=== PATIENT | female | born 1990 | race African-American/Black ===

== ENCOUNTER 2025-07-13 16:48 | Emergency (ER) | payer OTHER, SELFPAY ==
--- OUTSIDE RECORDS SUMMARY | 2025-07-13 16:50 | XMS REPORT | Continuity of Care Document ---
Author Name Unknown Address [address] [facility] [address] [place] [address] Organization [facility] Address [address] [facility] [place] [address] Care Team Providers Care Ukrainian Folk Arts Instructor Name Role Phone MARIPOSA STAPLES Attending Clinician Unavailable [id number] Attending Clinician Unavailable MD WILLARD Attending Clinician Unavailab le Payers Payer Name Policy Type Policy Number Effective Date Expirati on Date Source [facility] GUILLERMO ARAUZ COPAY FOCUS 9 [id number] 2024 00:00:00 Social History Social Habit Start Date Stop Date Quantity Comments Source Gender identity 2025-06-30 20:39:33 Identifies as female gender (finding) Bharti Sanon - External Sexual orientation 2025-06-30 20:39:33 Heterosexual (finding) Bharti Sanon - External ASSERTION Possible Deana Sanon - External History of Social function 2025-07-04 00:00:00 2025-07-04 00:00:00 Bharti Hernandezold - External Tobacco use and exposure 2025-07-04 00:00:00 2025-07-04 00:00:00 Smokeless tobacco non-user Bharti Hernandezold - External Alcoholic beverage intake 2025-07-04 00:00:00 2025-07-04 00:00:00 Ex-drinker (finding) Bharti Hernandezold - External Sex 2022-11-28 15:58:17 2022-11-28 15:58:17 Female (finding) Bharti Hernandezold - External Smoking Status Start Date Stop Date Source Never smoked tobacco Bharti Hernandezold - External Medications Ordered Medication Name Filled Medication Name Start Date Stop Date Current Medication? Ordering Clinician Indication Dosage Frequency Signature (SIG) Comments Components Source Vit-Fe Fumarate-FA ( OR) Vit-Fe Fumarate-FA ( OR) 07-04 13:33: 54 Yes Take by mouth. Bharti Sanon - Externa l Vital Signs Vital Name Observation Time Observation Value Comments S ource Systolic blood pressure 2025-07-04 13:32:00 123 mm[Hg] Bharti Hernandezo ld - External Diastolic blood pressure 2025-07-04 13:32:00 75 mm[Hg] Bharti Hernandezo ld - External Heart rate 2025-07-04 13:32:00 86 /min Dmitry Hernandezold - External Respiratory rate 2025-07-04 13:32:00 18 /min Bharti Sanon - External Body weight 2025-07-04 13:32:00 70.308 kg Shelia Hernandezold - External Procedures Procedure Date / Time Performed Performing Clinician Source US PREG TRANSVAGINAL - IN OFFICE 2025-07-04 00:00:00 Bharti Sanon - External GYNECOLOGIC PAP TEST, APTIMA HPV, RFX 16/18,45 Bharti Sanon - External CHLAMYDIA/GC AMPLIFICATION Bharti Sanon - External Plan of Care Planned Activity Planned Date Details Comments Source Encounters Start Date/Time End Date/Time Encounter Type Admission Type Attending [facility] Care Facility Care Department Encounter ID Source 2025-07-20 16:00:00 2025-07-20 16:00:00 Outpatient MARIPOSA STAPLES [id number] [facility] 2025-07-13 14:30:00 2025-07-13 14:30:00 Outpatient [id number] BHARTI DIAZSEY [id number] [facility] 2025-07-12 00:00:00 2025-07-12 00:00:00 Outpatient MD BHARTI العلي [id number] [facility] 2025-07-04 13:30:00 2025-07-04 13:30:00 Outpatient MARIPOSA STAPLES [id number] [facility] 2025-07-04 13:30:00 2025-07-04 13:30:00 Outpatient BHARTI GARCIA [id number] [facility] 2025-06-27 00:00:00 2025-06-27 00:00:00 Outpatient MARIPOSA STAPLES [id number] [facility] Notes Throughout your , you'll have many questions and your doctor's officeWe hope you have an amazing experience at [facility] during yourIndex Urdu Related [id number] by sono Date/Time Note Provider Source 2025-07-04 14:36:14 [facility] 2025-07-04 14:36:14 Patient Instructions Mariposa Staples MD - 07/01/2025 8:52 AM CDT Images from the original note were not included. Please begin taking baby aspirin 81 mg daily for the remainder of your to decrease your risk for preeclampsia. Your New Prescription for Managing Your Health Care Online. Are you a regular user of the Internet? Do you bank or shop online? If the answer is "yes," then now is the time to sign up for [employer], your direct, secure connection to the health home care attendant you rely on at [facility]. [employer] provides a secure login, which allows you to: Receive lab and imaging results electronically from your health care team. Request an appointment. Schedule an appointment. E-mail your health care team. View past and future appointments. Request updates to insurance and demographic information. And more! To get started, just log on to [email or web address] and select "If you do not have an access code and would like to enroll in [employer]...Click here." Enrollment is a multi-step process that includes answering four questions to confirm your identity and creating a unique user ID and password. It's easy and secure. And it's free! [employer] My Portal will share a lot of information with you. It can be overwhelming at times, which is why we're providing you with the most important information as you progress through your and welcome your . and utilize [employer] to streamline communication with your doctor's office, and more! look forward to caring for you and your family for years to come. [email or web address] n/[email or web address]- Care [place]INTS care is the care you receive while you are . care improves your chances for a healthy and healthy baby. At each visit, your healthcare provider will check to make sure that you and the baby are healthy. Besides having a checkup, you may have blood tests, ultrasound scans, or other tests. Keep all appointments with your healthcare provider. Use these visits to discuss your concerns or problems. ____ What is care? care is the care you receive while you are . It includes care given by your healthcare provider, support from your family, and giving yourself the care you need. care improves your chances for a healthy and healthy baby. When should I see my healthcare provider? If you are not yet but plan to get in the next few months, see your healthcare provider. Your provider may do some tests and talk about things you can do to have a healthy and healthy baby. You should schedule your first visit with your healthcare provider as soon as you think you are . Depending on your health and medical history, your provider will probably schedule visits at least once a month for the first 6 months. During the 7th and 8th months you will see your provider every 2 weeks. During the last month you will probably see your provider once a week until you deliver your baby. If your is high risk, your provider will probably want to see you more often or may refer you to a specialist. is considered high risk if you are over the age of 35 or have diabetes or other health problems. What will happen at the first visit? At your first visit, your healthcare provider will ask about your personal medical history. He or she will also ask about the baby s father and your family health history. This information can help give your provider an idea of any problems you may have during your . You will have a physical exam, including checks of your height, weight, and blood pressure, and a pelvic exam. You will have a Pap test, urine tests, blood tests, and cultures of the cervix and vagina to check for infection. Your provider will check that your immunizations (shots) are up to date. Your healthcare provider will calculate your due date and the age of your baby. If your periods were regular before you got , and you are sure of the day when your last period started, your due date will be estimated to be 40 weeks from that day. Your healthcare provider will talk to you about how to stay healthy during your . What will happen at other visits? At each visit your healthcare provider will check to make sure that you and the baby are healthy. Regular visits can help you and your provider prevent possible problems. They can also help your provider find and treat any problems early. In addition to meeting your medical needs, your provider will advise you about caring for yourself. You will talk about how to have a healthy meal plan and get plenty of physical activity and rest. Your provider can also help you deal with the emotional changes that can happen during . Your healthcare provider will discuss how you are feeling, ask if you have any problems, and answer your questions. During each visit your healthcare provider will: Weigh you Take your blood pressure Check your urine for glucose (sugar), protein, or bacteria Check your face, hands, ankles, and feet for swelling Listen to the baby's heartbeat, starting at about 12 weeks Measure the size of your uterus to check the baby s growth At different times during the , other exams and tests may be done. Some are routine and others are done only when a problem is suspected or you have a risk factor for a problem. Examples of other tests you might have are: Tests to check for genetic problems and some defects Ultrasound scans to check the baby's growth, development, and health and to look at your uterus, the bag of fluid that surrounds the baby (amniotic sac), and the placenta (the tissue that carries oxygen and food from your blood to the baby s blood) Blood tests to check for diabetes Electronic monitoring to check the health of the baby You may also be given shots to protect you against some common infections. How can I take care of myself during my ? Here are some things you can do to take good care of yourself during your and prepare for the of your child: Keep all appointments with your healthcare provider. Use these visits to discuss your concerns or problems. Write down questions before each visit so that you won t forget about things you want to talk about. Eat a variety of healthy foods that includes whole grains, fresh fruits and vegetables, and calcium-rich foods such as milk, cheese, and yogurt. Choose foods low in saturated fat. Ask your provider if there are foods you should not eat or if you should limit how much you eat. Drink plenty of water each day. Take vitamins, other supplements, and medicines as advised by your healthcare provider. Talk to your provider before you take any medicine, including nonprescription and herbal medicines. Some medicines are not safe during . Unless your healthcare provider tells you not to, try to be physically active for at least 30 minutes a day, most days of the week. You might find it easier to exercise 10 minutes at a time, 3 times a day. You may want to take a exercise class. Do not smoke, drink alcohol, or take illegal drugs. Avoid hot tubs or saunas. If you have cats in your home, do not empty the cat litter while you are . It may contain a parasite that causes an infection called toxoplasmosis, which can cause defects. Also, use gloves when you work in garden areas used by cats. Stay away from toxic chemicals like insecticides, solvents such as some chief juvenile probation officer or paint thinners, lead, and mercury. Check labels on household products. Most dangerous products have warnings on their labels. Ask your healthcare provider about products if you are unsure. Relax by taking breaks from work or chores. Help reduce stress by sharing your feelings with others. Report any violence or other types of abuse in your home. Learn more about , labor, and delivery. Read books, watch videos, go to a childbirth class, and talk with experienced moms. Plan for the lifestyle changes a new baby will bring. Prepare for possible changes in your budget, work situation, daily schedule, and relationships with family and friends. Talk to your healthcare provider about the pros and cons of . Before and during your , try to do everything you can to keep yourself and your baby healthy during your . Developed by [employer]. Adult Advisor 2022. published by [employer]. Last modified: 2021-12-03 Last reviewed: 2018-02-09 This content is reviewed periodically and is subject to change as new health information becomes available. The information is intended to inform and educate and is not a replacement for medical evaluation, advice, diagnosis or treatment by a healthcare professional. References Adult Advisor 2022.1 Index ? 2022 [employer] and/or one of its subsidiaries [facility] 2025-07-04 14:36:14 Mariposa Staples MD - 07/04/2025 1:47 PM CDT HPI: Tania Mauricio is a 34 year old female who presents today confirmation. Patient's last menstrual period was Patient's last menstrual period was 04/07/2025.. She denies any vaginal bleeding. Physical exam: Patient Vitals for the past 24 hrs: Weight 07/04/25 1332 155 lb Resp: no resp distress Cardio: regular rate and rhythm Abdomen: soft, nontender. No rebound or guarding Pelvic: normal external female genitalia. No lesions to vulva, vagina, cervix. Cervix closed. Uterus small. No adnexal masses Pt consented verbally to exam and ultrasound. Exam and ultrasound chaperoned by Steep Tender. SIUP heart tones seen well: yes TRISTON by sono or LMP: LMP - EDC 01/12/26 Uterus: no abnormalities seen Adnexae: nromal Free Fluid No Assessment/Plan: 1. Missed menses US PREG TRANSVAGINAL - IN OFFICE 2. Screening for HPV (human papillomavirus) 3. Screening for STD (sexually transmitted disease) 4. examination or test, positive result ([facility]) Pt counseled on Bharti Sanon group practice model and does desire to continue her care with me. She is to follow up with nursing services for her new ob intake visit. She is to begin a PNV with [facility] daily: recommendations given In conclusion, she is to call immediately if she encounters any bleeding, cramping or progressive abdominal pain. She has indicated understanding and agrees with the plan. Discussed options as well as risks and benefits of genetic screening and carrier screening for CF and SMA Counseled on sequential screen vs NIPT as well as invasive options ([facility]amnio) Discussed options of MSAFP screening at ~ 16 weeks. At this time pt desires NIPT and CS Return in 4 weeks (on 08/01/2025). [facility] MANAGEMENT PROFESSIONAL [facility] Pending Results Name Type Priority Associated Diagnoses Date /Time US PREG TRANSVAGINAL - IN OFFICE Imaging Routine Missed menses 07/04/2025 1:52 PM CDT Scheduled Orders Name Type Priority Associated Diagnoses Orde r Schedule GYNECOLOGIC PAP TEST, APTIMA HPV, RFX 16/18,45 Lab Routine Missed menses Screening for HPV (human papillomavirus) Ordered: 07/04/2025 CHLAMYDIA/GC AMPLIFICATION Lab Routine Missed menses Screening for STD (sexually transmitted disease) Ordered: 07/04/2025 US PREG TRANSVAGINAL - IN OFFICE Imaging Routine Missed menses Expected: 07/04/2025, Expires: 01/04/2026 Health Maintenance Due Date Last Done Comments Physical Exam 2008 Tdap Vaccines 2009 Lipid Panel 2010 PAP SMEAR WITH HPV 2020 COVID-19 Vaccine (2023-2 5 season) 2024 Influenza Vaccines (#1) 2025 RSV Vaccines (1 - 1-dose 75+ series) 2065 Pneumococcal Vaccine: Pediat rics (0 to 5 Years) and At-Risk Patients (6 to 64 Years) Aged Out No longer eligible b ased on patient's age to complete this topic [facility]2025-08-04 14:36:14 Diagnosis Missed menses - Primary Absence of menstruation Screening for HPV (human papillomavirus) Special screening examination for human papillomavirus (HPV) Screening for STD (sexually transmitted disease) Screening examination for venereal disease examination or test, positive result ([facility]) examination or test, positive result [facility]2025-08-04 14:36:14 [facility]2025-08-04 13:32:58 Chief Complaint Patient presents with Confirmation Of Tania is here for Confirmation of visit with Dr. staples LMP: 04/07/2025 Nausea: Yes - and/or vomiting: No Cramping or pain: No Vaginal bleeding: No Fabienne Sanders MA [facility]
--- NOTE | 2025-07-13 17:39 | RAD REPORT ---
EXAM: OB Limited HISTORY: VAGINAL BLEEDING COMPARISON: None TECHNIQUE: Multiple grayscale and color Doppler images were obtained in a transabdominal pelvic ultra sound. Spectral analysis of the Doppler waveforms of the ovaries were performed. FINDINGS: UTERUS: Single IUP identified. Femur length measures 1.2 cm which is consistent with 13 weeks 3 day. Placenta is anterior. heart rate measured at 163 bpm. The cervix is closed. No free fluid is seen in the pelvis. RIGHT OVARY: Not visualized, possibly obscured by bowel gas. LEFT OVARY: Not visualized, possibly obscured by bowel gas. IMPRESSION: Single IUP with positive heart tones measuring 13 week 3 day by femur length. Closed cervix
[2025-07-13 19:47] LABS: Sqamous Epithelial None Seen /HPF (None Seen); Urine Culture Reflex Order NOT NEEDED; Urine Microscopic Reflex YN ORDER UMIC
[2025-07-13 19:49] LABS: Absolute Lymphocytes (CBC) 1.8 K/uL (0.7-4.9); Hematocrit 33.9 % (36.0-45.0); Hemoglobin 11.4 g/dL (12.0-15.0); MCH 31.4 pg (27.0-35.0); MCHC 33.5 g/dL (32.0-36.0); MCV 93.7 fL (80-100); MPV 8.7 fL (7.6-11.3); Nucleated RBC Absolute Count 0.0 (0-0); Nucleated Red Blood Cells % 0.0 % (0-0); RBC Red Blood Cell Count 3.62 M/uL (3.86-4.86); White Blood Count 11.30 thou/uL (4.3-10.9)
[2025-07-13 20:20] LABS: Anion Gap 8.6 mEq/L (5.0-15.0); BUN Blood Urea Nitrogen 13.0 mg/dL (7-18); Glucose Level 103.0 mg/dL (74-106); HCG, Quantitative 96174.0 mIU/mL (1-3); Potassium 3.6 mEq/L (3.5-5.1)
--- NOTE | 2025-07-13 20:33 | EDPHYS ---
Physician Documentation [facility] Name: Annie Davenport Age: 34 yrs Sex: Female : 1990 Arrival Date: 07/13/2025 Time: 16:48 Bed 19 Private MD: ED Physician Nish Arvizu HPI: 07/13 17:15 This 34 yrs old Black Female presents to ER via Ambulatory with complaints of Vaginal cp Bleeding - 13 WKS . 17:15 Patient is a 34-year-old female who is a G3, P2 who presents to the emergency cp department with an episode of vaginal bleeding earlier today. Patient denies any abdominal pain, denies any leakage of fluid and reports to be approximately 13 weeks . 17:15 Associated signs and symptoms: Pertinent negatives: dysuria, fever, vomiting, abdominal cp pain. RN TELEHEALTH: 17:06 LMP 04/07/2025, Verified, EDC 01/12/2026, Gestational age from LMP: 13 weeks 6 dd2 days Historical: - Allergies: 17:06 No Known Allergies; dd2 - PMHx: 17:06 None; dd2 - PSHx: 17:06 None; dd2 - Immunization history:: Adult Immunizations up to date. - Infectious Disease History:: Denies. - Social history:: Smoking status: Patient denies any tobacco usage or history of. ROS: 17:20 Constitutional: Negative for body aches, chills, fever, poor PO intake, cp 17:20 Eyes: Negative for injury, pain, redness, and discharge, cp 17:20 Respiratory: Negative for cough, shortness of breath, wheezing, 17:20 Abdomen/GI: Negative for abdominal pain, vomiting, diarrhea, constipation, 17:20 : Positive for vaginal bleeding, Negative for urinary symptoms, 17:20 Neuro: Negative for headache, weakness, 17:20 All other systems are negative, Exam: 17:25 Constitutional: The patient appears in no acute distress, alert, awake, non-toxic, well cp developed, well nourished, 17:25 Head/Face: Normocephalic, atraumatic. cp 17:25 Eyes: Periorbital structures: appear normal, Conjunctiva: normal, no exudate, no injection, Sclera: no appreciated abnormality, Lids and lashes: appear normal, bilaterally, 17:25 ENT: External ear(s): are unremarkable, Nose: is normal, Mouth: Lips: moist, Oral mucosa: moist, Posterior pharynx: Airway: no evidence of obstruction, patent, 17:25 Chest/axilla: Inspection: normal, 17:25 Cardiovascular: Rate: normal, Rhythm: regular, 17:25 Respiratory: the patient does not display signs of respiratory distress, Respirations: normal, no use of accessory muscles, no retractions, labored breathing, is not present, Breath sounds: are clear throughout, no decreased breath sounds, no stridor, no wheezing, 17:25 Abdomen/GI: Inspection: abdomen appears normal, Palpation: abdomen is soft and non-tender, in all quadrants, 17:25 Back: pain, is absent, ROM is normal, 17:25 Neuro: Orientation: to person, place \T\ time. Mentation: is normal, Motor: moves all fours, strength is normal, Vital Signs: 17:04 BP 140 / 84; Pulse 92; Resp 16; Temp 98.2; Pulse Ox 100% ; Pain 0/10; dd2 19:35 BP 118 / 54; Pulse 75; Resp 18; Pulse Ox 100% ; kj2 20:38 BP 127 / 77; Pulse 74; Resp 18; Temp 98.2; Pulse Ox 100% ; kj2 17:04 Pain Scale: Adult dd2 MDM: 18:00 Differential diagnosis: urinary tract infection, vaginosis, incomplete , cp miscarriage, subchorionic bleed. 20:32 Medical Screening Exam initiated 20:32 Data reviewed: vital signs, nurses notes, lab test result(s), radiologic studies, cp ultrasound, and as a result, I will discharge patient. 07/13 17: Order name: Abo/rh Typing; Complete Time: 20:27 07/13 20:28 Interpretation: Reviewed. 07/13 17: Order name: Basic Metabolic Panel; Complete Time: 20:27 07/13 20:27 Interpretation: Normal except: GFR 86. 07/13 17: Order name: CBC with Diff; Complete Time: 20:27 07/13 20:27 Interpretation: Normal except: WBC 11.30; RBC 3.62; HGB 11.4; HCT 33.9; NEUT A 8.2. 08/13 17:09 Order name: Test, Urine; Complete Time: 20:27 cp 07/13 20:28 Interpretation: Reviewed. cp 07/13 17:09 Order name: Quantitative Hcg; Complete Time: 20:27 cp 07/13 20:27 Interpretation: Reviewed. cp 07/13 19:13 Order name: UA Rfx Nick Cult if indicated; Complete Time: 20:27 cp 07/13 17:09 Order name: US OB Limited; Complete Time: 18:48 cp 07/13 18:48 Interpretation: Report reviewed. cp 07/13 17:09 Order name: IV Saline Lock; Complete Time: 19:37 cp 07/13 17:09 Order name: Labs collected and sent; Complete Time: 19:37 cp 07/13 17:09 Order name: NPO; Complete Time: 19:37 cp Administered Medications: No medications were administered Disposition: 18:59 I was immediately available on-site in the Emergency Department for consultation in the ms3 care of the patient. Disposition Summary: 07/13/25 20:32 Discharge Ordered Notes: Location: Home cp Problem: new cp Symptoms: have improved cp Condition: Stable cp Diagnosis - Other specified related conditions, first trimester cp - Anemia, unspecified cp Followup: cp - With: Private Physician - When: 1 week - Reason: Recheck today's complaints Discharge Instructions: - Discharge Summary Sheet cp - Anemia cp - and Anemia cp - Vaginal Bleeding During , First Trimester cp Forms: - Medication Reconciliation Form cp - Antibiotic Education cp - Prescription Opioid Use cp - Patient Portal Instructions cp - Leadership Thank You Letter cp Signatures: Dispatcher [employer] EDMS Denilson Culp PA PA cp Sims, Marcus, DO DO ms3 BRADLEY LUNA RN RN dd2 Corrections: (The following items were deleted from the chart) 17:10 17:10 OB Limited+[email or web address] ordered. EDMS EDMS
--- NOTE | 2025-07-13 20:33 | ER ---
Nurse's Notes [facility] Name: Annie Davenport Age: 34 yrs Sex: Female : 1990 Arrival Date: 07/13/2025 Time: 16:48 Bed 19 Private MD: Diagnosis: Other specified related conditions, first trimester;Anemia, unspecified Presentation: 07/13 17:04 Chief complaint: Patient states: BLEEDING ABOUT 1-2 HOURS AGO BUT NO BLEEDING SINCE. PT dd2 DENIES PAIN OR CRAMPING. Coronavirus screen: At this time, the client does not indicate any symptoms associated with coronavirus-19. Ebola Screen: No symptoms or risks identified at this time. Initial Sepsis Screen: Does the patient meet any 2 criteria? No. Patient's initial sepsis screen is negative. Does the patient have a suspected source of infection? No. Patient's initial sepsis screen is negative. Risk Assessment: Do you want to hurt yourself or someone else? Patient reports no desire to harm self or others. Onset of symptoms was July 13, 2025. 17:04 Method Of Arrival: Ambulatory dd2 17:04 Acuity: RALPH 3 dd2 Triage Assessment: 17:06 General: Appears in no apparent distress. comfortable, Behavior is calm, cooperative, dd2 appropriate for age. Pain: Denies pain. : Reports vaginal bleeding that is bright red. I&C TECHNICIAN: 17:06 LMP 04/07/2025, Verified, EDC 01/12/2026, Gestational age from LMP: 13 weeks 6 dd2 days Historical: - Allergies: 17:06 No Known Allergies; dd2 - PMHx: 17:06 None; dd2 - PSHx: 17:06 None; dd2 - Immunization history:: Adult Immunizations up to date. - Infectious Disease History:: Denies. - Social history:: Smoking status: Patient denies any tobacco usage or history of. Screenin:50 [facility] ED Fall Risk Assessment (Adult) History of falling in the last 3 months, kj2 including since admission No falls in past 3 months (0 pts) Confusion or Disorientation No (0 pts) Intoxicated or Sedated No (0 pts) Impaired Gait No (0 pts) Mobility Assist Device Used No (0 pt) Altered Elimination No (0 pt) Score/Fall Risk Level 0 - 2 = Low Risk Maintained a safe environment, Hourly rounding (assess needs \T\ fall precautionary measures) done. Abuse screen: Denies threats or abuse. Denies injuries from another. Nutritional screening: No deficits noted. Tuberculosis screening: No symptoms or risk factors identified. Assessment: 18:50 General: Appears in no apparent distress. Behavior is calm, cooperative. Pain: Denies kj2 pain. Neuro: Level of Consciousness is awake, alert, obeys commands, Oriented to person, place, time, situation. Cardiovascular: Patient's skin is warm and dry. Respiratory: Airway Respiratory effort is even, unlabored. : No signs and/or symptoms were reported regarding the genitourinary system. 19:35 Reassessment: Patient appears in no apparent distress at this time. Patient and/or kj2 family updated on plan of care and expected duration. Pain level reassessed. Patient is alert, oriented x 3, equal unlabored respirations, skin warm/dry/pink. 20:38 Reassessment: Patient appears in no apparent distress at this time. Patient and/or kj2 family updated on plan of care and expected duration. Pain level reassessed. Patient is alert, oriented x 3, equal unlabored respirations, skin warm/dry/pink. Vital Signs: 17:04 BP 140 / 84; Pulse 92; Resp 16; Temp 98.2; Pulse Ox 100% ; Pain 0/10; dd2 19:35 BP 118 / 54; Pulse 75; Resp 18; Pulse Ox 100% ; kj2 20:38 BP 127 / 77; Pulse 74; Resp 18; Temp 98.2; Pulse Ox 100% ; kj2 17:04 Pain Scale: Adult dd2 ED Course: 16:52 Patient arrived in ED. cj3 16:53 Denilson Culp PA is PHCP. cp 16:53 Nish Arvizu DO is Attending Physician. cp 17:06 Triage completed. dd2 17:06 Arm band placed on right wrist. dd2 17:29 US OB Limited In Process Unspecified. EDMS 18:50 Patient has correct armband on for positive identification. Bed in low position. Call kj2 light in reach. Adult w/ patient. Provided Education on: call light. 18:56 [place], MARSHALL is Primary Nurse. kj2 19:32 Inserted saline lock: 20 gauge in left antecubital area, using aseptic technique. Blood kj2 collected. Flushed with 10 mL NS. 20:38 No provider procedures requiring assistance completed. IV discontinued, intact, kj2 bleeding controlled, No redness/swelling at site. Pressure dressing applied. Administered Medications: No medications were administered Medication: 20:38 VIS not applicable for this client. kj2 Outcome: 20:32 Discharge ordered by . cp 20:39 Discharged to home ambulatory, kj2 20:39 Condition: stable 20:39 Discharge instructions given to patient, family, Instructed on discharge instructions, follow up and referral plans. Demonstrated understanding of instructions, follow-up care, 21:07 Patient left the ED. kj2 Signatures: Dispatcher [employer] EDMS Denilson Culp PA PA cp Jordan, Krystal RN RN kj2 BRADLEY LUNA RN RN dd2 Sruthi Aldana cj3
== END 2025-07-13 21:07 | disposition home or self-care (01) ==
LOC: ER 16:48
DX: O99.011 Anemia complicating pregnancy, first trimester (principal); Z3A.13 13 weeks gestation of pregnancy
CPT/HCPCS: 36415; 76815; 80048; 81001; 81025; 84702; 85025; 86900; 86901; 99284